=== PATIENT | male | born 1990 | race Two or more races ===

== ENCOUNTER 2020-11-19 05:43 | Emergency (ER) | payer OTHER ==
[~2020-11-19] VITALS: Ht 182.9 cm; Wt 90.7 kg
--- NOTE | 2020-11-19 06:14 | NUR ---
PT BIBRA 89 C/O "AIRHEADEDNESS" S/P COCAINE, ALCOHOL, AND MARIJUANA LEFT ANKLE PAIN FROM WALKING IN HEAVY BOOTS. PT ALERT AND ORIENTED X3 WITH NON LABORED BREATHING.
[2020-11-19] MEDS ORDERED: IV NS 0.9% 1,000 ML BAG IV ONE (07:00)
--- NOTE | 2020-11-19 07:12 | NUR ---
blood collected and sent to lab
[2020-11-19 07:33] LABS: BASOPHILS # (AUTO) 0.1 K/uL (0.0-0.2); BASOPHILS % (AUTO) 0.5 % (0.0-2.0); EOSINOPHILS % (AUTO) 0.9 % (0.0-6.0); HEMATOCRIT 40 % (39-51); HEMOGLOBIN 13.7 g/dL (13.5-17.5); LYMPHOCYTES # (AUTO) 2.2 K/uL (0.8-4.8); LYMPHOCYTES % (AUTO) 16.5 % (20.0-44.0); MEAN CORPUSCULAR HGB CONC 34 g/dl (31.0-36.0); MEAN CORPUSCULAR VOLUME 91 fL (80-96); MONOCYTES # (AUTO) 0.8 K/uL (0.1-1.30); MONOCYTES % (AUTO) 5.9 % (2.0-12.0); NEUTROPHILS % (AUTO) 76.2 % (43.0-81.0); PLATELET COUNT (AUTO) 265 K/uL (150-450); RED BLOOD CELL COUNT(AUTO) 4.42 MIL/uL (4.5-6.0); WHITE BLOOD COUNT (AUTO) 13.1 K/uL (4.3-11.0)
[2020-11-19 07:44] LABS: CALCIUM, SERUM 8.5 mg/dL (8.5-10.1); CARBON DIOXIDE 27 mmol/L (21-32); CHLORIDE 103 mmol/L (98-107); CREATININE 0.9 mg/dL (0.6-1.3); GLUCOSE 97 mg/dL (74-106); POTASSIUM 3.8 mmol/L (3.5-5.1); SODIUM SERUM 138 mmol/L (136-145); UREA NITROGEN, BLOOD 11 mg/dL (7-18)
--- NOTE | 2020-11-19 08:33 | NUR ---
URINE IS COLLECTED AND SENT TO THE LAB
[2020-11-19] MEDS ORDERED: ACET325T53 PO (09:23)
--- NOTE | 2020-11-19 09:55 | NUR ---
Patient discharged to home in stable condition. Written and verbal after care instructions given. Patient verbalizes understanding of instruction.
[2020-11-19 09:59] VITALS: BP 127/68
== END 2020-11-19 09:59 | disposition home or self-care (01) ==
LOC: ER 05:47
DX: M25.572 Pain in left ankle and joints of left foot (principal); F15.10 Other stimulant abuse, uncomplicated; R42 Dizziness and giddiness; F31.9 Bipolar disorder, unspecified
CPT/HCPCS: 36415; 73610; 80048; 80307; 84484; 85025; 93005; 96360; 99285; J7030